=== PATIENT | female | born 1965 | race Caucasian/White ===

== ENCOUNTER 2019-01-25 17:57 | Emergency (ER) | payer MEDICAID ==
[~2019-01-25] VITALS: Ht 160 cm; Wt 101.7 kg
[2019-01-25 18:04] VITALS: BP 155/79
--- NOTE | 2019-01-25 18:18 | NUR ---
REPORTS MEDICAL HISTORY OF MODERATE SLEEP APNEA AND THYROID CANCER.
--- NOTE | 2019-01-25 18:18 | NUR ---
PT PRESENTS TO ED WITH C/O SOB APPROX 1 HR LUMBER CHAIN OFFBEARER; PER PT EPISODE LASTED 20 MINUTES. DENIES ANY CHEST PAIN, NAUSEA, VOMITING OR COLD SYMPTOMS. CONNECTED TO DETECTIVE AND INTELLIGENCE ANALYST; VSS. BED LOCKED AND IN LOWEST POSITION. ERMD TO EVALUATE PT.
[2019-01-25 18:37] LABS: BASOPHILS % (AUTO) 0.4 % (0.0-2.0); EOSINOPHILS # (AUTO) 0.3 K/uL (0-0.4); EOSINOPHILS % (AUTO) 2.7 % (0.0-4.0); HEMATOCRIT 36.9 % (36-48); HEMOGLOBIN 12.1 g/dL (12.0-16.0); LYMPHOCYTES # (AUTO) 4.1 K/uL (2.5-16.5); LYMPHOCYTES % (AUTO) 38.2 % (20.5-51.1); MEAN CORPUSCULAR HEMOGLOBIN 24 pg (27-31); MEAN CORPUSCULAR HGB CONC 33 g/dL (33-37); MEAN CORPUSCULAR VOLUME 72.7 fL (80-94); MONOCYTES # (AUTO) 0.6 K/uL (0.8-1.0); MONOCYTES % (AUTO) 5.7 % (1.7-9.3); NEUTROPHILS # (AUTO) 5.7 K/uL (1.8-7.7); PLATELET COUNT (AUTO) 232 K/uL (140-450); RED BLOOD CELL COUNT(AUTO) 5.07 MIL/uL (4.20-5.40); RED CELL DISTRIBUTION WIDTH 15.3 % (11.6-13.7); WHITE BLOOD COUNT (AUTO) 10.8 K/uL (4.8-10.8)
[2019-01-25 18:51] LABS: ANION GAP 13.5 (8-16); CARBON DIOXIDE 25.1 mmol/L (21-32); CREATININE 0.9 mg/dL (0.6-1.3); POTASSIUM 3.6 mmol/L (3.5-5.1)
--- NOTE | 2019-01-25 19:23 | NUR ---
RECEIVED BEDSDIE REPORT BY LUDIN COATES.
--- NOTE | 2019-01-25 19:23 | NUR ---
REPORT GIVEN TO LUDIN GREEN. TRANSFER OF CARE AT THIS TIME.
--- NOTE | 2019-01-25 19:55 | NUR ---
Patient discharged with v/s stable. Written and verbal after care instructions given and explained. Patient verbalized understanding. Ambulatory with steady gait. All questions addressed prior to discharge. Advised to follow up with PMD.
[2019-01-25 20:00] VITALS: BP 141/81
== END 2019-01-25 19:55 | disposition home or self-care (01) ==
LOC: MED 17:57
DX: R06.00 Dyspnea, unspecified (principal); C73 Malignant neoplasm of thyroid gland; Z90.49 Acquired absence of other specified parts of digestive tract; Z90.710 Acquired absence of both cervix and uterus; Z98.890 Other specified postprocedural states
CPT/HCPCS: 36415; 71046; 80048; 84484; 85025; 99284

== ENCOUNTER 2019-08-06 14:26 | Emergency (ER) | payer MEDICAID, OTHER ==
[~2019-08-06] VITALS: Ht 160 cm; Wt 103.4 kg
[2019-08-06 14:30] VITALS: BP 157/95
--- NOTE | 2019-08-06 14:46 | NUR ---
PT AMBULATED TO ER BED 09
--- NOTE | 2019-08-06 14:48 | NUR ---
Pt ambulated to restroom to provide urine sample.
--- NOTE | 2019-08-06 14:54 | NUR ---
53 y/o F presents to ER from urgent care for KATHLEEN and tingling and numbness from neck radiating to fingertips. Pt denies Shortness of breath. Denies chest pain. Pt pain level 8/10. Denies changes in vision. Pt reports dizziness with sudden neck movement. Pt awake and alert. Respirations even and unlabored. HOB elevated, bed in lowest position, side rail up x1. Waiting for ERMD to evaluate pt. Allergies: NKA Med hx: gallbladder removal, thyroid cancer, and TIA 2010
[2019-08-06 15:48] LABS: APPEARANCE,URINE CLOUDY (CLEAR); BILIRUBIN,URINE NEGATIVE (NEGATIVE); BLOOD, URINE NEGATIVE (NEGATIVE); COLOR,URINE YELLOW (YELLOW); LEUKOCYTE ESTERASE ,URINE NEGATIVE (NEGATIVE); NITRITE, URINE NEGATIVE (NEGATIVE); UGLUCOSE NEGATIVE (NEGATIVE)
[2019-08-06] MEDS ORDERED: LISINOPRIL 20 MG TAB PO ONE (16:00)
[2019-08-06] MEDS ORDERED: ACETAMINOPHEN EXTRA STRENGTH 500 MG TAB PO ONE (16:05)
--- NOTE | 2019-08-06 16:29 | NUR ---
Note jacquelin in EDM - 08/06/19 at 1631 by [facility] NADR TO TORADOL AND MORPHINE. . PT REPORTS 10/ PAIN EVEN AFTER PAIN MEDICATIONS GIVEN. DR. ENRIQUEZ NOTIFIED AND ORDERED MORE MORPHINE
--- NOTE | 2019-08-06 17:20 | NUR ---
Pt reports a decrease in pain level 5/10. ERMD made aware.
[2019-08-06 17:48] VITALS: BP 138/86
--- NOTE | 2019-08-06 17:48 | NUR ---
Patient discharged by Dr. Goodwin with v/s stable. Written and verbal after care instructions given and explained. Patient alert, oriented and verbalized understanding of instructions. Ambulatory with steady gait. All questions addressed prior to discharge. ID band removed. Patient advised to follow up with PMD. Rx of Lisinopril 20mg was given. Patient educated on indication of medication including possible reaction and side effects. Opportunity to ask questions provided and answered.
== END 2019-08-06 17:48 | disposition home or self-care (01) ==
LOC: MED 14:26
DX: R51 Headache (principal); I10 Essential (primary) hypertension; Z90.49 Acquired absence of other specified parts of digestive tract; Z90.710 Acquired absence of both cervix and uterus; Z98.890 Other specified postprocedural states; Z86.73 Personal history of transient ischemic attack (TIA), and cerebral infarction without residual deficits; Z85.850 Personal history of malignant neoplasm of thyroid
CPT/HCPCS: 81003; 93005; 99284